=== PATIENT | female | born 1995 | race Caucasian/White ===

== ENCOUNTER 2025-04-06 11:11 | Emergency (ER) | payer BC, SELFPAY ==
[2025-04-06 12:32] VITALS: BP 116/76; PULSE 76; RESP 16; TEMP 36.7; O2SAT 100
--- NOTE | 2025-04-06 12:54 | ED.URI ---
HPI - URI/Sore Throat General Chief Complaint: Upper Respiratory Infection Stated Complaint: Sinus Infection Symptoms Time Seen by Provider: 04/06/25 12:58 Source: patient, RN notes reviewed and old records reviewed Mode of arrival: ambulatory Limitations: no limitations History of Present Illness HPI Narrative: 29-year-old female presents to the [facility] with 4 day history of sore throat, sinus congestion. Denies fevers. No treatment prior to arrival Onset (ago): day(s) (4) Related Data Home Medications ?Medication ?Instructions ?Recorded ?Confirmed ?Last Taken ?Type cranberry extract 500 mg capsule 500 mg PO BID 02/24/21 02/24/21 Unknown History (Cranberry Concentrate) multivitamin (Daily Multi-Vitamin 1 tablet PO DAILY 09/27/22 Unknown History tablet) Allergies Allergy/AdvReac Type Severity Reaction Status Date / Time No Known Allergies Allergy Mild Verified 04/06/25 13:13 Review of Systems Review of Systems: All systems reviewed & are unremarkable except as noted in HPI and below Constitutional: Constitutional: Reports no additional constitutional complaints ENT: Reports as per HPI, Reports nasal congestion and Reports sore throat Cardiovascular: Cardiovascular: Reports no additional cardiovascular complaints, Denies chest pain and Denies dyspnea Respiratory: Respiratory: Reports no additional respiratory complaints, Denies chest congestion, Denies cough and Denies dyspnea Musculoskeletal: Musculoskeletal: Reports no additional musculoskeletal complaints Integumentary/Breasts: Skin/Breast: Reports system reviewed and no additional complaints, except as docu PMFSH Past Medical History Medical History Frequent UTI Family History Family History Father Hypertension Social History Social History Smoking status: Never smoker Second hand tobacco smoke exposure: No Alcohol intake: current Alcohol use details: Rarely Substance use: never Lack of Transportation: No Lack of Food: Never True Current Housing: I Have Housing Concerned About Future Housing: No Difficulty Paying Gas/Electric Bills: No Difficulty Paying for Meds: No Currently Unemployed: No Education: Associate Degree Living arrangements: alone Occupation/Education: occupation Gender identity (if verbalized by the patient): Female Sexual Orientation (if Verbalized by the Patient): Straight or Heterosexual Spiritual care concerns: No Comments At the time of my signature, I reviewed and agree with the nursing past medical, surgical, social, and family history. There is no relevant family history pertinent to the patient complaint. Exam Const: General: cooperative, no acute distress, well developed, alert, uncomfortable and well nourished Nutritional Appearance: well nourished Orientation/consciousness: patient oriented x3 Limitations: no limitations HENMT: Head: normal to inspection Ears: hearing grossly normal bilaterally, external ears normal, TM's normal bilaterally, EAC's normal, mastoids normal and no periauricular adenopathy Mouth: Yes Normal oral and palatal mucosa present, Yes lip normal, Yes tongue normal and Yes moist mucous membranes Throat: uvula midline and abnormal tonsil bilateral erythema, exudates and hypertrophy 3+ Eyes: General: appearance normal, both eyes and all related structures Alignment and Position: alignment normal Neck: Neck: normal visual inspection, full ROM, no lymphadenopathy and no meningeal signs Chest: Chest palpation & inspection: normal inspection of the chest Resp: Effort & Inspection: normal respiratory effort and able to speak in complete sentences Auscultation: clear to auscultation bilaterally, no crackles, no rales, no rhonchi and no wheezes Cardio: Rate: regular rate Skin: General skin exam: normal color and no rashes or lesions noted Neuro: General: patient oriented x3, gait normal, moves all extremities and no meningeal signs Cognition (Neuro): normal cognition Speech: normal speech Gait exam (Neuro): Normal gait present Extrem: General: normal to inspection, full ROM, capillary refill normal and normal gait Psych: Appearance: grossly normal and well kempt Mental Status: mental status grossly normal Speech and movement: Normal speech and movement present and Clear speech present Affect: normal affect Attitude: cooperative Course Course Level of Care: Express Care Visit Vital Signs Vital signs: Vital Signs Temperature 98.1 F 04/06/25 12:32 Pulse Rate 76 04/06/25 12:32 Respiratory Rate 16 04/06/25 12:32 Blood Pressure 116/76 04/06/25 12:32 Pulse Oximetry 100 04/06/25 12:32 Temperature 98.1 F 04/06/25 12:32 Pulse Rate 76 04/06/25 12:32 Respiratory Rate 16 04/06/25 12:32 Blood Pressure 116/76 04/06/25 12:32 Pulse Oximetry 100 04/06/25 12:32 Reviewed MDM - URI/Sore Throat MDM Narrative Medical decision making narrative: Patient sitting in exam room. Patient is nontoxic but appears uncomfortable. Strep, flu, COVID, mono are negative. Will send strep culture however patient with significant erythema, exudate, +3 tonsils, will cover with antibiotic. Patient appropriate for outpatient treatment with close follow-up. Discussed in detail signs and symptoms proceed to the emergency room which she verbalized understanding Discharge instructions reviewed with patient, as well as provided in writing per nursing staff. The instructions also include specific and strict return/GO TO THE ER as well as f/u information. All questions have been answered, and the patient deny any further questions with discharge and discharge plan. Some parts of this dictation were generated by voice recognition software and may contain typographical and/or grammatical inaccuracies. Differential Diagnosis Differential diagnosis: Likely upper respiratory infection, otitis media, sinusitis, viral infection, bronchitis, influenza and pharyngitis Lab Data Labs: Lab Results 04/06/25 04/06/25 Range/Units 12:25 13:11 POC Monoscreen Negative (Negative) POC Influenza A Ag Negative (Negative) POC Influenza B Ag Negative (Negative) POC SARS CoV-2 Ag Negative (Negative) POC Grp A Strep Screen Negative (Negative) Reviewed Critical Care Time Critical Care Time Critical Care Time: No Discharge Plan Discharge Clinical Impression: Tonsillitis with exudate Patient Disposition: Home Condition: Stable Instructions: Antibiotic Form, Tonsillitis (ED) Additional Instructions: After 24-48 hours on antibiotics, Throw the toothbrush away, start using a new one. Please be sure to wash bed linens especially pillow cases. Repeat once you finish the antibiotics. Do not share drinks. Take Motrin alternating with Tylenol for pain and fever alternating every 4 hours. Increase fluids, avoid caffeine. Give plenty of water, juice, Gatorade, Pedialyte, ice pops in Jell-O Follow up with Primary provider if not getting better this week For new or worsening symptoms go directly to the emergency room Patient Language: Albanian Prescriptions: New amoxicillin 875 mg tablet 875 mg PO Q12H Qty: 20 0RF No Action cranberry extract [Cranberry Concentrate] 500 mg capsule 500 mg PO BID Rx Instructions: administer with meals multivitamin [Daily Multi-Vitamin] Tablet 1 tablet PO DAILY etonogestrel-ethinyl estradiol [EluRyng] 0.12-0.015 mg/24 hr ring 1 vag ring vaginal ONCE Qty: 9 3RF Rx Instructions: Insert ring vaginally. Remove after 3 weeks. Insert new ring 1 week later Follow-up/Referrals: PHYSICIAN,INTERNATIONAL STUDENT COUNSELOR [Primary Care Provider, Internal Medicine] Stand Alone Forms: Work/School Release IP Time of Disposition: 13:17
[2025-04-06 13:11] LABS: EDCOVIDSCREEN Negative (Negative); EDINFLUASCREEN Negative (Negative); EDINFLUBSCREEN Negative (Negative); EDSTREPNEGPOS1 Negative (Negative)
[2025-04-06 13:13] LABS: EDMONONEGPOS Negative (Negative)
== END 2025-04-06 13:24 | disposition home or self-care (01) ==
PROVIDERS: Emergency Provider Nurse Practitioner
DX: J03.90 Acute tonsillitis, unspecified (principal); Z20.822 Contact with and (suspected) exposure to COVID-19
CPT/HCPCS: 36416; 86308; 87081; 87426; 87804; 87880; 99213; G0463